=== PATIENT | male | born 1970 | race Caucasian/White ===

== ENCOUNTER 2025-04-18 23:42 | Emergency (ER) | payer OTHER, SELFPAY ==
[2025-04-18 23:54] VITALS: BP 161/104
--- NOTE | 2025-04-19 00:57 | ED.GENMED ---
History of Present Illness
General
Chief Complaint: Eye Problems
Time Seen by Provider: 04/19/25 00:56
Past History
Past History
ED Past Medical History: Asthma, GERD and Other (Diverticulosis, diverticulitis, seasonal allergies, low back pain, prediabetes)
ED Past Surgical History: Tonsilectomy and Other (Umbilical hernia repair)
Social History
Tobacco: Non-smoker
Personal:
Living: with family
Employment: Employed
Family History
Family History: Diabetes
Course
Vital Signs
Initial and Last Documented VS:
Initial Vital Signs
Temp Pulse Resp BP Pulse Ox
98.4 F 96 20 161/104 97
04/18/25 23:54 04/18/25 23:54 04/18/25 23:54 04/18/25 23:54 04/18/25 23:54
Last Documented Vital Signs
Temp Pulse Resp BP Pulse Ox
98.4 F 96 20 161/104 97
04/18/25 23:54 04/18/25 23:54 04/18/25 23:54 04/18/25 23:54 04/18/25 23:54
*Pulse Oximetry
SaO2: 97
Oxygen Mode of Delivery: Room air
ED Attending Note
-
Portions of this chart may have been created with voice recognition software.� Occasional wrong word or��sound alike� substitutions may have occurred due to the inherent limitations of voice recognition software.
Discharge Plan
Departure
Prescriptions:
No Action
gentamicin [Gentak] 1 APPLIC ointment
1 applic OPHTHALMIC BID Qty: 1 0RF
pantoprazole 40 MG tablet,delayed release (DR/EC)
40 mg PO DAILY Qty: 30 0RF
escitalopram oxalate 10 MG tablet
10 mg PO DAILY Qty: 30 0RF
prednisone 10 MG tablet
10 mg PO .TAPER Qty: 30 0RF
Rx Instructions:
Take 40mg daily x3days, 30mg daily x3days,
20mg daily x3days, 10mg daily x3days.
Referrals:
Sushma Palmer MD [Family Provider, [facility]]
Interventions
Interventions:
*Risk Screen - Suicide Last Done: 04/18/25 23:54
*General Assessment Last Done: 04/18/25 23:54
*Neglect/Abuse Screening Last Done: 04/18/25 23:54
*ED- Fall Risk Assessment Last Done: 04/18/25 23:54
*ED Influenza Vaccine History Last Done: 04/18/25 23:54
Discharge Date and Time
Print Language: WELSH
[2025-04-19 01:38] VITALS: BP 163/103
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
[2025-04-19] MEDS: GENOPTIC 0.3% EYE DROPS 1 DROP OPHTH (02:58)
[2025-04-19] MEDS: ADACEL 0.5 ML IM (02:59)
== END 2025-04-19 03:13 | disposition home or self-care (01) ==
LOC: EMR 23:42
PROVIDERS: EMERGENCY PHYSICIAN Student in an Organized Health Care Education/Training Program; FAMILY PHYSICIAN Family Medicine
DX: S05.01XA Injury of conjunctiva and corneal abrasion without foreign body, right eye, initial encounter (principal); W22.8XXA Striking against or struck by other objects, initial encounter; R03.0 Elevated blood-pressure reading, without diagnosis of hypertension; J45.909 Unspecified asthma, uncomplicated; K21.9 Gastro-esophageal reflux disease without esophagitis; Z23 Encounter for immunization
CPT/HCPCS: 99283; 90471; 70200; 90715